=== PATIENT | male | born 1960 | race Caucasian/White ===

== ENCOUNTER 2019-07-18 08:54 | Day surgery (SDC) | payer MEDICARE, MEDICAID ==
[~2019-07-18] VITALS: Ht 180.3 cm; Wt 80.0 kg
[~2019-07-18 08:54] MED LIST: 0.9% SODIUM CHLORIDE 10 ML SYRINGE IVP PRN; AMLO10TA7 PO; ASPI81 PO; ATOR20TA86 PO; BUME1TAB34 PO; CALC0.253 PO; CARV12 PO; DILT180C52 PO; ISOS30TA6 PO; LOSA50TA64 PO; METOPROLOL TARTRATE 50 MG TABLET PO PRN; NIFE60TA81 PO; SEVE800 PO
[2019-07-18] MEDS ORDERED: METOPROLOL TARTRATE 50 MG TABLET ONE (09:27)
[2019-07-18 09:30] LABS: CALCIUM, TOTAL 9.2 mg/dL (8.8-10.5); CREATININE 6.8 mg/dL (0.60-1.30); POTASSIUM 4.5 mmol/L (3.5-5.1)
[2019-07-18] MEDS ORDERED: NITROGLYCERIN 400 MCG/SUBLINGUAL SPRAY 4.9 GM BOTTLE SL ONE (09:54)
[2019-07-18] MEDS ORDERED: METOPROLOL TARTRATE 5 MG/5 ML VIAL ONE (09:54)
== END 2019-07-18 10:25 | disposition home or self-care (01) ==
LOC: SURGERY 08:54 → EDSTATUS 09:00 → SURGERY 10:25
PROVIDERS: ATTEND Nutritionist Nutrition, Education
DX: R06.02 Shortness of breath (principal); Z53.8 Procedure and treatment not carried out for other reasons; I25.10 Atherosclerotic heart disease of native coronary artery without angina pectoris
CPT/HCPCS: 36415; 80048; 93005; J3490